=== PATIENT | female | born 1985 | race Caucasian/White ===

== ENCOUNTER → 2023-09-10 | Outpatient (CLI) | payer MEDICAID, SELFPAY ==
[2023-09-10 11:45] LABS: Hematocrit 40.6 % (37-47); Hemoglobin 13.3 g/dL (12.0-15.0); Mean Corp Hgb Conc 32.8 g/dL (32-36); Mean Corpuscular Hgb 29.9 pg (27.0-32.0); Mean Corpuscular Volume 91.2 fL (81-99); Mean Platelet Vol. 9.9 fl (6.2-12.0); Platelet Count 209 K/mm3 (150-450); RBC Distribution Width SD 43.6 fl (35.1-43.9); Red Blood Count 4.45 M/mm3 (4.2-5.4); White Blood Count 7.7 K/mm3 (4.4-11.0)
[2023-09-10 12:01] LABS: Hemoglobin A1c 4.8 % (3.8-5.6)
[2023-09-10 12:03] LABS: AST(SGOT) 11 U/L (15-37); Alanine Aminotransfer ALT/SGPT 19 U/L (13-56); Albumin, Serum 3.4 g/dL (3.2-5.0); Alkaline Phosphatase 93 U/L (45-117); Anion Gap 6 (5-15); BUN 10 mg/dL (7-18); BUN/Creat Ratio 12.1 RATIO (10-20); Calcium,Total 9.5 mg/dL (8.5-10.1); Chloride 107 mmol/L (98-107); Creatinine, Serum 0.82 mg/dL (0.55-1.02); EST Glomerular Filtration Rate 82 mL/min (>60); Est Glom Filt Rate - Afr Amer 99 mL/min (>60); Ferritin 17 ng/mL (8-252); Globulin 3.3 g/dL (2.2-4.2); Glucose 96 mg/dL (74-106); Iron 51 ug/dL (50-170); Iron Binding Capacity,Total 313 ug/dL (250-450); PERCENT IRON SATURATION 16.3 % (15.0-55.0); Potassium 3.7 mmol/L (3.5-5.1); Protein, Total 6.7 g/dL (6.4-8.2); Sodium Level 138 mmol/L (136-145)
[2023-09-10 12:19] LABS: Vitamin B12 345 pg/mL (211-911); Vitamin D,25 Hydroxy 76.9 ng/mL
== END | disposition home or self-care (01) ==
PROVIDERS: Referring Provider Counselor Mental Health; Visit Provider Counselor Mental Health
DX: Z79.899 Other long term (current) drug therapy (principal); E55.9 Vitamin D deficiency, unspecified
CPT/HCPCS: 36415; 80053; 80178; 82306; 82607; 82728; 83036; 83540; 83550; 84443; 85027

== ENCOUNTER 2023-10-30 08:04 | Emergency (ER) | payer MEDICAID, SELFPAY ==
[2023-10-30 08:05] VITALS: BP 120/86; PULSE 102; RESP 16; TEMP 36.6; O2SAT 97; BMI 33.3
--- NOTE | 2023-10-30 09:05 | EDS_ITS ---
HPI History of Present Illness Chief Complaint: Dental Informant: patient Associated Symptoms Assocated Symptom - Dental: jaw swelling; Negative for fever Narrative Narrative: Patient is a 38-year-old female with history of vaping presenting with right lower dental pain and jaw swelling. Patient dates has been having pain for the past 3 to 4 days but this morning woke around 4 AM and notes are dry with swelling. Is worried she has a dental abscess. Taking ibuprofen with no relief. Denies any fever. Denies any speech changes or difficulty swallowing. Is requesting referral for dentist that she does not have 1. PFSH PFS Medical History [place] [facility] Home Medications ?Medication ?Instructions ?Recorded ?Last Taken ?Type hydrocodone-acetaminophen 5-325mg 1 tab PO Q8H PRN Pain 3 days #10 10/30/23 Unknown Rx 5mg-325mg TABLETS penicillin V potassium 500 mg 500 mg PO 4X/DAY #40 tabs 10/30/23 Unknown Rx tablet Allergy/AdvReac Type Severity Reaction Status Date / Time olanzapine (From Zyprexa) Allergy Intermediate Rash Verified 10/30/23 08:18 ziprasidone (From Geodon) AdvReac Intermediate unsteady Verified 10/30/23 08:18 gait Surgical History H/O: hysterectomy Social History Smoking Status: Current every day smoker tobacco type: cigarettes ROS ROS ED Constitutional Constitutional ED: Denies chills or fever(s) Eyes Eyes: Denies blurry vision ENT ENT ED: Reports other Details: right lower dental pain and jaw swelling Respiratory/Chest Respiratory/Chest: Denies dyspnea Gastrointestinal Gastrointestinal: Denies vomiting Integumentary Denies rash EXAM Physical Exam Const Vital Signs: 10/30/23 08:05 Temperature 97.9 F Temperature Source Temporal Pulse Rate 102 H Respiratory Rate 16 Blood Pressure 120/86 H Blood Pressure Mean 97 Pulse Ox 97 Oxygen Delivery Method Room Air Positive well nourished and well developed General Appearance ED: well developed and NAD HEENT Reports TM's clear HEENT Narrative: Poor dentition throughout. Multiple missing and carried teeth. Pain is seems to be coming from the right lower premolar which is partially eroded away. With palpation other spontaneous purulent drainage from the lateral aspect of the tooth. Associated pain. Sublingual mucosa is soft. There is some soft tissue swelling noted of the right mandibular area. Handling secretions well. Tympanic Membrane ED: Yes TM's clear Teeth and Gingiva: poor dentition and teeth discoloration Throat: posterior oropharynx normal Eyes PERRL and EOMs intact bilaterally Neck supple Chest Wall inspection of chest normal Cardio regular rate and regular rhythm Neuro oriented x3 Sensorium / Orientation: alert Motor Exam: Negative for general weakness Psych mental status grossly normal Skin no rashes or lesions noted MDM MDM MDM Narrative Medical decision making narrative: Patient evaluated for worsening right lower dental pain and jaw swelling. Exam highly consistent with spontaneously draining dental abscess. She is uncomfortable but nontoxic-appearing. Started on antibiotic (request penicillin because amoxicillin gives her diarrhea) and also was given a short course of Almira for pain control as she is not having adequate pain control with ibuprofen. Is given dental referral sheet. At this time she does not have findings concerning for with Kiran angina, airway compromise or deep space abscess requiring further imaging/ENT consult. Is encouraged to stop vaping. Discharged home in stable condition. Given return precautions. Discharge Plan Triage Chief Complaint: Dental ED Provider: Jing Shaffer Dx/Rx/DC Orders Clinical Impression: Dentalgia, Abscess, dental Instructions: ED Tooth Abscess Prescriptions: New penicillin V potassium 500 mg tablet 500 mg PO 4X/DAY Qty: 40 0RF hydrocodone-acetaminophen 5-325 mg tablet 1 tab PO Q8H PRN (Reason: Pain) 3 Days Qty: 10 0RF Primary Care Provider: Care Physician,No Primary Referrals: Care Physician,No Primary [Primary Care Provider] - Activity Restrictions/Additional Instructions: You may also take up to 600 mg of [id number] ibuprofen (3 tablets) every 6 hours for pain. Please stop vaping. Print Language: Spanish Disposition Disposition: Home, Self Care
[2023-10-30] MEDS: Penicillin Vk 250 MG Tablet 500 MG PO (09:13)
[2023-10-30] MEDS: HYDROcodone Bitartrate/Apap 5/325 Tablet PO (09:13)
== END 2023-10-30 09:37 | disposition home or self-care (01) ==
PROVIDERS: Emergency Provider Emergency Medicine; Visit Provider Emergency Medicine
DX: K04.7 Periapical abscess without sinus (principal); K02.9 Dental caries, unspecified; F17.210 Nicotine dependence, cigarettes, uncomplicated
CPT/HCPCS: 99284

== ENCOUNTER 2024-08-05 14:23 | Emergency (ER) | payer MEDICAID, SELFPAY ==
[2024-08-05 14:24] VITALS: BP 88/68; PULSE 126; RESP 18; TEMP 37; O2SAT 98; BMI 29.2
--- NOTE | 2024-08-05 16:03 | RAD_ITS ---
PROCEDURE: CHEST PA AND LATERAL 08/05/2024 REASON FOR EXAM: CHEST PAIN TECHNIQUE: Frontal and lateral views of the chest. COMPARISON: None FINDINGS: Cardiomediastinal silhouette is within normal limits. Lungs are clear. No sizable pneumothorax. RAD/Chest PA and Lateral IMPRESSION: No acute airspace abnormality. Reading Location: [facility]
--- NOTE | 2024-08-05 16:10 | EX.ED.DYSGE1 ---
HPI History of Present Illness Chief Complaint: Syncope Informant: patient Onset/Context/Timing Onset: - (Syncopal episodes x 2 on Saturday. No prior history.) Context: Sudden Onset Timing: Intermittent Current Severity: Mild Maximum Severity: Mild Narrative Narrative: 39-year-old female history of bipolar. Prior hysterectomy and . States on Saturday she had 2 syncopal episodes. Had loss conscious. Fell striking her face and right shoulder. Denies any headache or neck pain. Has normal range of motion of the shoulder. States she has had nausea but no vomiting or diarrhea. No melena. No vaginal bleeding. No fever or dysuria. No severe headache, chest pain or shortness of breath. No abdominal pain. She has never had syncopal episodes before. She has no cardiac history. Prior similar symptoms: No Recent Illness/Hospitalization: No PFSH PFSH Medical History [place] [facility] Home Medications ?Medication ?Instructions ?Recorded ?Last Taken ?Type hydrocodone-acetaminophen 5-325mg 1 tab PO Q8H PRN Pain 3 days #10 10/30/23 Unknown Rx 5mg-325mg TABLETS penicillin V potassium 500 mg 500 mg PO 4X/DAY #40 tabs 10/30/23 Unknown Rx tablet Allergy/AdvReac Type Severity Reaction Status Date / Time olanzapine (From Zyprexa) Allergy Intermediate Rash Verified 08/05/24 14:25 ziprasidone (From Geodon) AdvReac Intermediate unsteady Verified 08/05/24 14:25 gait Surgical History H/O: hysterectomy Social History Smoking Status: Current every day smoker tobacco type: cigarettes ROS ROS ED ROS Narrative Nausea but no other complaints other than the syncopal episodes. Constitutional Constitutional ED: Denies chills or fever(s) Eyes Eyes: Denies blurry vision ENT ENT ED: Denies ear pain Cardiovascular Cardiovascular: Denies chest pain Respiratory/Chest Respiratory/Chest: Denies cough, dyspnea or dyspnea on exertion Gastrointestinal Gastrointestinal: Reports nausea; Denies abdominal pain, constipation, diarrhea, melena or vomiting Genitourinary Genitourinary ED: Denies dysuria or hematuria Musculoskeletal Musculoskeletal: Denies arthralgias or back pain Integumentary Denies abscess Neurologic Neurologic: Denies headache(s) Psychiatric Psychiatric: Denies anxiety Endocrine Endocrinology: Denies cold intolerance Hematologic/Lymphatic Hematologic/Lymphatic: Reports none Allergic/Immunologic Allergic/Immunologic ED: Denies mouth swelling, tongue swelling or urticaria EXAM Physical Exam Narrative Exam Narrative: 3-year-old female sitting upright in bed. No acute distress her initial blood pressure was 88/68. Her pulse is 126. Afebrile. Pulse ox 90% on room air. Currently has no complaints other than mild nausea. H EENT exam pupils round reactive light. No significant trauma to her face or scalp. Nontender no hematomas. Moist mucous membranes. Neck nontender no lymphadenopathy. Back nontender. Lungs clear equal symmetrical. Heart regular rhythm rate about 90 no murmur. Chest wall and ribs nontender. Abdomen soft nontender. No peritoneal signs. Moving all 4 extremities. 5 out of 5 clothing room supervisor strength. Normal range of motion of both upper extremities. She is a very minor bruise on her right shoulder is normal range of motion no deformity. 5 out of 5 clothing room supervisor strength bilaterally. Neurovascular intact. Both lower extremities are nontender no deformity. Normal range of motion. Normal dorsi and plantarflexion. Calves are nontender without edema or cords. Neurologically she is awake alert no focal motor deficits. Const Vital Signs: 08/05/24 14:24 08/05/24 15:48 08/05/24 16:03 Temperature 98.6 F Temperature Source Oral Pulse Rate 126 H Respiratory Rate 18 Respiratory Effort Normal Non-Labored Respiratory Pattern Normal Blood Pressure 88/68 L Blood Pressure Mean 74 Pulse Ox 98 Oxygen Delivery Method Room Air Room Air 08/05/24 17:00 08/05/24 18:00 08/05/24 19:00 Temperature Temperature Source Pulse Rate 104 H 99 72 Respiratory Rate 16 16 18 Respiratory Effort Respiratory Pattern Blood Pressure 98/71 97/65 106/71 Blood Pressure Mean 80 75 82 Pulse Ox 96 98 99 Oxygen Delivery Method Room Air Room Air HEENT Reports moist mucous membranes Negative for trauma or tenderness Eyes PERRL and EOMs intact bilaterally General Eye ED: Negative for pale conjunctiva or scleral icterus Neck no lymphadenopathy, supple and no JVD General: Negative for tenderness Lymph Lymphatic: Negative for other Chest Wall inspection of chest normal Resp normal respiratory effort and clear to auscultation bilaterally Cardio regular rate, regular rhythm, S1 normal heart sound, S2 normal heart sound and no murmurs Rate: Negative for bradycardia or tachycardic Rhythm: Negative for abnormal rhythm GI normal to inspection, nondistended, normoactive bowel sounds, non-tender, non-distended and no masses Inspection: Negative for abdominal distention Auscultation: normoactive bowel sounds Palpation: soft; Negative for tender, guarding or rebound tenderness present Back/Spine no CVA tenderness General Back: Negative for CVA tenderness Cervical Spine: Negative for cervical spine tenderness Thoracic Spine / Upper Back: Negative for thoracic spinal tenderness or paraspinal muscle tenderness Lumbar Spine / Lower Back: Negative for lumbar spinal tenderness Extremity normal to inspection Extremity Narrative: Minor bruise right shoulder. Nontender. No deformity. Full range of motion. Normal clothing room supervisor strength bilaterally. Normal range of motion nontender lower extremities. Calves are nontender without edema or cords. General Extremety ED: Negative for edema or tenderness General Extremity: Negative for edema Neuro oriented x3 and CN's II-XII intact bilaterally Sensorium / Orientation: alert; Negative for orientation impaired, lethargic or stuporous Motor Exam: strength 5/5 throughout; Negative for general weakness or strength abnormal Psych mental status grossly normal Attitude: No agitated Mood & Affect: Negative for depressed, anxious or tearful Skin no rashes or lesions noted, no wounds and skin turgor normal General Skin Exam: elasticity normal Lesions: No lesion noted Rashes: No rashes noted MDM MDM MDM Narrative Medical decision making narrative: 39-year-old female presents with syncopal episodes x 2 on Saturday. Only complaint currently is nausea. Exam benign. Workup for syncope being done. Differential would include dysrhythmia, anemia, dehydration versus other etiologies. She has a benign exam. She be treated with IV fluids because her initial blood pressure was 88/60. Currently her pulse is under 100. Repeat exam at 7:52 PM patient doing well. No complaints. Abdomen benign. Current blood pressure is 102/60. Show he stood up and ambulated. We discussed her normal test results. We discussed admission versus being discharged home. She preferred to be discharged home. Syncope uncertain etiology. Either follow-up with primary care physician or orthopaedic surgeon here for possible outpatient cardiac monitoring. History & Record Review Discussion w/independent historian: Patient Additional record(s) reviewed:: Prior inpatient record, Prior outpatient record, Prior ED visit and Prior labs Lab Data Attestation: I reviewed the patient's lab results. Lab results narrative: CBC shows normal white count 9.3. H&H 14 and 41. Platelets 226. Electrolytes show sodium 140. Gap 10. Normal BUN of 8 creatinine 0.8. Glucose 86. Troponin less than 6. UA negative. Labs: Laboratory Results - last 24 hr 08/05/24 08/05/24 16:28 18:06 WBC 9.3 RBC 4.44 Hgb 14.1 Hct 41.8 MCV 94.1 MCH 31.8 MCHC 33.7 RDW Std Deviation 45.5 H RDW Coeff of Lorraine 13.2 Plt Count 226 MPV 10.7 Immature Gran % (Auto) 0.300 Neut % (Auto) 60.5 Lymph % (Auto) 32.8 [place] % (Auto) 5.0 Eos % (Auto) 1.3 Baso % (Auto) 0.1 Absolute Neuts (auto) 5.7 Absolute Lymphs (auto) 3.06 Nucleated RBC % 0 Sodium 140 Potassium 3.6 Chloride 109 H Carbon Dioxide 21.1 Anion Gap 10 BUN 8 Creatinine 0.80 Estim Creat Clear Calc 97.61 Est GFR (MDRD) Non-Af 96 BUN/Creatinine Ratio 10.1 Glucose 86 Calcium 9.1 Troponin T High Sens < 6 Urine Color Yellow Urine Clarity Clear Urine pH 6.0 Ur Specific [place] 1.015 Urine Protein TNP Urine Glucose (UA) Normal Urine Ketones Negative Urine Occult Blood Negative Urine Nitrite Negative Urine Bilirubin Negative Urine Urobilinogen Normal Ur Leukocyte Esterase 100 H Urine RBC 0-5 SEEN Urine WBC 0-5 SEEN Ur Squamous Epith Cells 0-5 SEEN Urine Bacteria 0 SEEN Urine Mucus 0 SEEN U Random Total Protein 10.7 Radiography Chest X-Ray - ED: 2 View, Read by ED Physician, Read by Radiologist, Normal, Heart, Lungs, Mediastinum, Bony Structures, No Acute Disease and Chronic Changes Diagnostic Testing: Clinical Impression(s) from Imaging Studies Chest X-Ray 08/05/24 16:03 IMPRESSION: No acute airspace abnormality. Reading Location: [facility] Chest x-ray, 2 views, AP lateral, interpreted by myself shows no acute abnormality. Normal cardiac silhouette. Normal lung mercado. Rhythm Strip Rhythm Strip: Sinus Rhythm Rate: 89 Ectopy: None EKG Initial EKG: Attestation: I personally reviewed and interpreted this EKG as follows: Interpretation: Sinus Rhythm and No Acute Injury Pattern Comments: Normal sinus rhythm rate 89 no acute signs of RI or ischemia. No dysrhythmia. Incomplete right bundle branch block. Discharge Plan Triage Chief Complaint: Syncope ED Provider: Pravin Hernandez Dx/Rx/DC Orders Clinical Impression: Syncope Instructions: What Is Syncope Prescriptions: No Action penicillin V potassium 500 mg tablet 500 mg PO 4X/DAY Qty: 40 0RF hydrocodone-acetaminophen 5-325 mg tablet 1 tab PO Q8H PRN (Reason: Pain) 3 Days Qty: 10 0RF Primary Care Provider: Kylah Marcelino NP Referrals: Juan Gómez MD [Med Staff - Active Staff] - As soon as possible Kylah Marcelino NP, CAGE MANAGER-C [Primary Care Provider] - As soon as possible Activity Restrictions/Additional Instructions: All your tests look good today. We do not have a specific cause of why you passed out. Call and follow-up with our orthopaedic surgeon. They can consider doing outpatient cardiac monitoring. Call their office. Tell them you were seen in the emergency department you passed out we do not have a specific cause and we thought that they could discuss with you outpatient cardiac monitoring if necessary. I would not drive at this time until you are feeling better. Print Language: Mohawk Disposition Disposition: Home, Self Care
[2024-08-05] MEDS: 0.9% Normal Saline (1000mL) 1,000 ML 999 ML IV (16:32)
[2024-08-05 16:43] LABS: Absolute Lymphocyte Count 3.06 X10^3/uL (0.83-4.51); Absolute Neutrophil Count 5.7 X10^3/uL (2.0-7.7); Basophil# 0.01 X10^3/uL; Basophil% 0.1 % (0-1); Eosinophil# 0.12 X10^3/uL; Eosinophils% 1.3 % (0-5); Hematocrit 41.8 % (37-47); Hemoglobin 14.1 g/dL (12.0-15.0); Lymphocyte # 3.06 X10^3/ul (0.83-4.51); Lymphocyte % 32.8 % (19-41); Mean Corp Hgb Conc 33.7 g/dL (32-36); Mean Corpuscular Hgb 31.8 pg (27.0-32.0); Mean Corpuscular Volume 94.1 fL (81-99); Mean Platelet Vol. 10.7 fl (6.2-12.0); Monocyte# 0.47 X10^3/uL; NRBC Flagged by Analyzer 0 % (0-5); Neutrophil # 5.65 X10^3/uL (2.7-7.7); Neutrophil % 60.5 % (47-70); Platelet Count 226 K/mm3 (150-450); RBC Distribution Width CV 13.2 % (11.6-14.6); RBC Distribution Width SD 45.5 fl (35.1-43.9); Red Blood Count 4.44 M/mm3 (4.2-5.4); White Blood Count 9.3 K/mm3 (4.4-11.0)
[2024-08-05 17:00] VITALS: BP 98/71; PULSE 104; RESP 16; O2SAT 96
[2024-08-05 17:25] LABS: Anion Gap 10 (5-15); BUN 8 mg/dL (4-19); BUN/Creat Ratio 10.1 RATIO (10-20); Calcium,Total 9.1 mg/dL (7.6-11.0); Carbon Dioxide 21.1 mmol/L (21.0-32.0); Chloride 109 mmol/L (98-108); EST Glomerular Filtration Rate 96 (>60); Estimated Creatinine Clearance 97.61 ml/min (50-250); Glucose 86 mg/dL (70-99); Potassium 3.6 mmol/L (3.3-5.1); Sodium Level 140 mmol/L (133-145); Troponin T High Sensitivity < 6 ng/L (<=14)
[2024-08-05 18:00] VITALS: BP 97/65; PULSE 99; RESP 16; O2SAT 98
[2024-08-05 18:10] LABS: Bacteria 0 SEEN /hpf (None Seen); Mucous, Urine 0 SEEN /hpf (<or=2+)
[2024-08-05 18:22] LABS: Color, Urine Yellow (Yellow); Glucose, Dipstick Normal (Normal); Ketone-Dipstick Negative (Negative); Leukocyte Esterase-Dipstick 100 /ul (Negative); Nitrite-Dipstick Negative (Negative); Occult Blood-Urine Negative /ul (Negative); Specific Gravity, Urine 1.015 (1.002-1.030); Urine Bilirubin Dipstick Negative (Negative); Urine Clarity Clear (Clear); Urine Urobilinogen Normal (Normal)
[2024-08-05 19:00] VITALS: BP 106/71; PULSE 72; RESP 18; O2SAT 99
[2024-08-05 19:20] LABS: Red Blood Cells-Urine 0-5 SEEN /hpf (0-5); Squamous Epithelial Cells - UA 0-5 SEEN /hpf (5-10); White Blood Cells 0-5 SEEN /hpf (0-5)
[2024-08-05 19:47] LABS: Protein, Urine (Random) 10.7 mg/dL (0.0-12.0)
[2024-08-05 20:00] VITALS: BP 102/71; PULSE 78; RESP 16; TEMP 36.3; O2SAT 99
== END 2024-08-05 20:13 | disposition home or self-care (01) ==
PROVIDERS: Emergency Provider Emergency Medicine; PCP Nurse Practitioner Adult Health; Visit Provider Emergency Medicine
DX: R55 Syncope and collapse (principal); S40.011A Contusion of right shoulder, initial encounter; W18.30XA Fall on same level, unspecified, initial encounter; R11.0 Nausea; F17.210 Nicotine dependence, cigarettes, uncomplicated
CPT/HCPCS: 71046; 80048; 81001; 84156; 84484; 85025; 93005; 96360; 96361; 99284; A4216

== ENCOUNTER 2025-01-24 19:49 | Emergency (ER) | payer MEDICAID, SELFPAY ==
[2025-01-24 19:52] VITALS: BP 102/75; PULSE 89; RESP 12; TEMP 36.8; O2SAT 98
--- NOTE | 2025-01-24 20:17 | EDS_ITS ---
HPI History of Present Illness Chief Complaint: Chest Pain Informant: patient Onset/Context/Timing Onset: Today Activity at onset: sudden Timing: Continuous Quality: Positive for Stabbing and - (Cramping) Location: Substernal, Right Parasternal and Right Chest Worsened By: - (Yawning) Relieved By: Nothing Associated Symptoms: Positive for Nausea, Vomiting, Diaphoresis, Dyspnea, Cough and Lightheadedness; Negative for Fever, Acid Reflux or Palpitations Narrative Narrative: Patient presents with chest pain that began today. Patient states began rather suddenly. Patient describes it as stabbing and cramping. Patient states it is over the substernal area and right chest. Patient states it is worse whenever she yawns. Patient states nothing makes it better. Patient admits to some nausea and vomiting. Patient admits to some shortness of breath and cough. Patient admits to some diaphoresis and lightheadedness. Patient denies any fevers or chills. Patient denies any palpitations. CVD Risk Factors: Positive for Smoking; Negative for Hypertension, Diabetes, Hypercholesterolemia or Family History 1' </=55 PE Risk Factors: Positive for Cancer; Negative for Recent Travel/Surgery, Recent Immobilization, Prior DVT or PE or OCP + Smoking + >/=35 PFSH PFSH Medical History Nicotine use disorder Fibromyalgia Marijuana use Adjustment disorder Syncope Genital herpes Bipolar disorder [place] Home Medications ?Medication ?Instructions ?Recorded ?Last Taken ?Type cariprazine 1.5 mg capsule 1.5 mg PO DAILY 01/24/25 Un known History (Vraylar) cariprazine 3 mg capsule (Vraylar) 3 mg PO DAILY 01/24 Unknown History clonazepam 1 mg tablet 1 mg PO TID PRN PRN anxiety attack 01/24/25 Unknown History doxycycline monohydrate 50 mg 50 mg PO DAILY 01/24/25 Unknown History capsule gabapentin 300 mg capsule 300 mg PO 4X/DAY 01/24/25 Un known History gabapentin 600 mg tablet 600 mg PO BID 01/24/25 Unkno wn History lamotrigine 200 mg tablet 200 mg PO QHS 01/24/25 Unkno wn History lamotrigine 25 mg tablet 25 mg PO QHS 01/24/25 Unknow n History spironolactone 50 mg tablet 50 mg PO DAILY 01/24/25 Un known History topiramate 100 mg tablet 100 mg PO QHS 01/24/25 Unkno wn History valacyclovir 500 mg tablet 500 mg PO DAILY 01/24/25 Un known History zolpidem 10 mg tablet 10 mg PO QHS 01/24/25 Unknow n History Allergy/AdvReac Type Severity Reaction Status Date / Time olanzapine (From Zyprexa) Allergy Intermediate Rash Verified 01/24/25 19:56 ziprasidone (From Geodon) AdvReac Intermediate unsteady Verified 01/24/25 19:56 gait Surgical History H/O section History of vulvectomy H/O: hysterectomy Social History Smoking Status: Current every day smoker tobacco type: cigarettes ROS ROS ED Constitutional Constitutional ED: Denies chills or fever(s) Eyes Eyes: Denies blurry vision or change in vision ENT ENT ED: Denies rhinorrhea or sore throat Cardiovascular Cardiovascular: Reports chest pain; Denies palpitations Respiratory/Chest Respiratory/Chest: Reports dyspnea; Denies cough Gastrointestinal Gastrointestinal: Reports nausea and vomiting Genitourinary Genitourinary ED: Denies dysuria or hematuria Musculoskeletal Musculoskeletal: Denies back pain or neck pain Integumentary Denies abscess or rash Neurologic Neurologic: Denies headache(s) or weakness Allergic/Immunologic Allergic/Immunologic ED: Denies mouth swelling or urticaria EXAM Physical Exam Const Vital Signs: 01/24/25 19:52 01/24/25 20:23 01/24/25 20:58 Temperature 98.2 F Temperature Source Oral Pulse Rate 89 85 Respiratory Rate 12 18 Respiratory Effort Respiratory Pattern Blood Pressure 102/75 102/73 Blood Pressure Mean 84 82 Pulse Ox 98 99 98 Oxygen Delivery Method Room Air Room Air Room Air 01/24/25 22:00 01/24/25 22:00 01/24/25 23:00 Temperature Temperature Source Pulse Rate 84 79 Respiratory Rate 16 18 Respiratory Effort Normal Non-Labored Respiratory Pattern Normal Blood Pressure 102/83 H 103/80 Blood Pressure Mean 89 87 Pulse Ox 98 96 Oxygen Delivery Method Room Air Room Air 01/24/25 23:22 Temperature 98 F Temperature Source Pulse Rate 81 Respiratory Rate 16 Respiratory Effort Respiratory Pattern Blood Pressure 103/80 Blood Pressure Mean 87 Pulse Ox 97 Oxygen Delivery Method Positive well nourished and well developed General Appearance ED: well developed and NAD HEENT Reports moist mucous membranes Neck supple and no JVD Chest Wall palpation of chest normal Resp normal respiratory effort and clear to auscultation bilaterally Cardio regular rate and regular rhythm GI soft to palpation, non-tender and non-distended Extremity normal to inspection Neuro oriented x3, CN's II-XII intact bilaterally and no sensory deficits noted Sensorium / Orientation: awake and alert Motor Exam: strength 5/5 throughout Psych mental status grossly normal Heart Score History: Slightly/Non-Suspicious ECG: Nonspecific Repolarization Age: </= 45 years Risk Factors: 1 or 2 Risk Factors Troponin: </= Normal Limit Score: 2 MDM MDM MDM Narrative Medical decision making narrative: Differential diagnosis includes cardiac dysrhythmia, cardiac ischemia, pneumonia, bronchitis, gastroesophageal reflux disease, viral illness, and anxiety. EKG will be obtained to assess for cardiac dysrhythmia and cardiac ischemia. Chest x-ray will be obtained to assess for pneumonia or bronchitis. CBC will be obtained to assess for leukocytosis and anemia. Basic metabolic profile will be obtained to assess for electrolyte abnormality and renal function. High-sensitivity troponin will be obtained to assess for cardiac ischemia. 2-hour repeat high-sensitivity troponin will be obtained to assess for ongoing cardiac ischemia. Lab Data Attestation: I reviewed the patient's lab results. Lab results narrative: CBC was reviewed and was essentially within normal limits. Basic metabolic pr ofile was reviewed and was within normal limits. Initial high-sensitivity troponin was reviewed and was less than 6. 2-hour repeat high-sensitivity troponin was reviewed and was less than 6. Labs: Laboratory Results - last 24 hr 01/24/25 01/24/25 19:20 22:18 WBC 9.5 RBC 5.06 Hgb 16.3 H Hct 47.3 H MCV 93.5 MCH 32.2 H MCHC 34.5 RDW Std Deviation 43.8 RDW Coeff of [place]raine 12.8 Plt Count 314 MPV 10.5 Immature Gran % (Auto) 0.200 Neut % (Auto) 63.2 Lymph % (Auto) 28.9 [place] % (Auto) 6.8 Eos % (Auto) 0.7 Baso % (Auto) 0.2 Absolute Neuts (auto) 6.0 Absolute Lymphs (auto) 2.73 Nucleated RBC % 0 Sodium 137 Potassium 3.6 Chloride 104 Carbon Dioxide 17.2 L Anion Gap 16 H BUN 10 Creatinine 0.88 Est GFR (MDRD) Non-Af 85 BUN/Creatinine Ratio 11.6 Glucose 100 H Calcium 9.6 Troponin T High Sens < 6 Troponin T Hi Sens 2 Hr < 6 Radiography Diagnostic Testing: Clinical Impression(s) from Imaging Studies Chest X-Ray 01/24/25 20:23 IMPRESSION: No acute cardiopulmonary process. Reading Location: [facility] and lateral chest x-ray was obtained. There are 2 views. On my independent interpretation, lung mercado are clear. There is normal cardiac silhouette. Bony thorax is normal. There is no acute process noted. Radiologist also interpreted the x-ray and agrees. EKG Initial EKG: Attestation: I personally reviewed and interpreted this EKG as follows: Interpretation: Sinus Rhythm (91) and Non-Specific ST Changes Comments: EKG was obtained. On my independent interpretation, it shows a normal sinus rhythm with a rate of 91. SC interval was normal at 1 or 50 ms. QRS interval was normal at 80 ms. QTc interval was normal at 428 ms. There is borderline right axis deviation at 113. There are no acute ST or T wave changes noted. Prior EKG tracings: available for review Prior: Unchanged (08/05/2024) Treatment and Re-Evaluation :: Patient was given aspirin and Zofran here. Patient was advised of her findings. Patient has a HEART score of 2. Patient was advised that this is low risk for acute cardiac event. Patient was instructed to follow-up with her primary care physician this week as scheduled. Patient understood and was agreeable with the plan. All questions were answered. Discharge Plan Triage Chief Complaint: Chest Pain ED Provider: Quoc Seymour Dx/Rx/DC Orders Clinical Impression: Chest pain, Nicotine use disorder, Fibromyalgia Instructions: ED Chest Pain, Uncertain Cause Prescriptions: No Action gabapentin 600 mg tablet 600 mg PO BID lamotrigine 200 mg tablet 200 mg PO QHS clonazepam 1 mg tablet 1 mg PO TID PRN PRN (Reason: anxiety attack) valacyclovir 500 mg tablet 500 mg PO DAILY lamotrigine 25 mg tablet 25 mg PO QHS doxycycline monohydrate 50 mg capsule 50 mg PO DAILY gabapentin 300 mg capsule 300 mg PO 4X/DAY zolpidem 10 mg tablet 10 mg PO QHS topiramate 100 mg tablet 100 mg PO QHS spironolactone 50 mg tablet 50 mg PO DAILY Vraylar 1.5 mg capsule 1.5 mg PO DAILY Vraylar 3 mg capsule 3 mg PO DAILY Primary Care Provider: Kylah Marcelino NP Referrals: Kylah Marcelino NP, PRODUCE DEPARTMENT SUPERVISOR-C [Primary Care Provider, Medical] - [facility] appointment Print Language: Japanese Disposition Disposition: Home, Self Care Discharge Date/Time: 01/24/25 23:22
[2025-01-24 20:23] VITALS: O2SAT 99
--- NOTE | 2025-01-24 20:23 | RAD_ITS ---
EXAM: XR Chest, 2 Views CLINICAL INDICATION: CHEST PAIN TECHNIQUE: Frontal and lateral views of the chest. COMPARISON: XR Chest dated 08/05/2024 FINDINGS: LUNGS AND PLEURAL SPACES: Unremarkable. No consolidation. No pneumothorax. HEART: Unremarkable. No cardiomegaly. MEDIASTINUM: Unremarkable. Normal mediastinal contour. BONES/JOINTS: Unremarkable. No acute fracture. RAD/Chest PA and Lateral IMPRESSION: No acute cardiopulmonary process. Reading Location: [id number]
--- NOTE | 2025-01-24 20:23 | EKG12_ITS ---
Test Reason : Blood Pressure : */* mmHG Vent. Rate : 91 BPM Atrial Rate : 91 BPM P-R Int : 150 ms QRS Dur : 80 ms QT Int : 348 ms P-R-T Axes : 79 113 58 degrees QTcB Int : 428 ms Normal sinus rhythm Right axis deviation Possible Right ventricular hypertrophy Abnormal ECG Confirmed by ABHINAV LINDSEY, SHIMA ([id number]), film and video editor DONI ORELLANA ([id number]) on 01/26/2025 7:49:09 AM Referred By: Confirmed By: SHIMA LA MD
[2025-01-24 20:39] LABS: Hematocrit 47.3 % (37-47); Hemoglobin 16.3 g/dL (12.0-15.0); Immature Granulocytes Count 0.020 X10^3/uL (0.0-0.0); Mean Corp Hgb Conc 34.5 g/dL (32-36); Mean Corpuscular Volume 93.5 fL (81-99); Mean Platelet Vol. 10.5 fl (6.2-12.0); NRBC Flagged by Analyzer 0 % (0-5); Platelet Count 314 K/mm3 (150-450); RBC Distribution Width CV 12.8 % (11.6-14.6); RBC Distribution Width SD 43.8 fl (35.1-43.9); Red Blood Count 5.06 M/mm3 (4.2-5.4); White Blood Count 9.5 K/mm3 (4.4-11.0)
[2025-01-24 20:58] VITALS: BP 102/73; PULSE 85; RESP 18; O2SAT 98
[2025-01-24 21:03] LABS: Anion Gap 16 (5-15); BUN 10 mg/dL (4-19); BUN/Creat Ratio 11.6 RATIO (10-20); Calcium,Total 9.6 mg/dL (7.6-11.0); Carbon Dioxide 17.2 mmol/L (21.0-32.0); Chloride 104 mmol/L (98-108); Glucose 100 mg/dL (70-99); Potassium 3.6 mmol/L (3.3-5.1); Troponin T High Sensitivity < 6 ng/L (<=14)
[2025-01-24 22:00] VITALS: BP 102/83; PULSE 84; RESP 16; O2SAT 98
[2025-01-24 23:00] VITALS: BP 103/80; PULSE 79; RESP 18; O2SAT 96
[2025-01-24 23:11] LABS: Troponin T High Sens 2 HR < 6 ng/L (<=14)
[2025-01-24 23:22] VITALS: BP 103/80; PULSE 81; RESP 16; TEMP 36.6; O2SAT 97
== END 2025-01-24 23:22 | disposition home or self-care (01) ==
PROVIDERS: Emergency Provider Emergency Medicine; PCP Nurse Practitioner Adult Health; Visit Provider Emergency Medicine
DX: R07.9 Chest pain, unspecified (principal); F31.9 Bipolar disorder, unspecified; R11.2 Nausea with vomiting, unspecified; M79.7 Fibromyalgia; Z79.899 Other long term (current) drug therapy; Z90.710 Acquired absence of both cervix and uterus; F17.210 Nicotine dependence, cigarettes, uncomplicated
CPT/HCPCS: 71046; 80048; 84484; 85025; 93005; 96374; 99285; A4216; J2405

== ENCOUNTER 2025-04-05 10:25 | Emergency (ER) | payer MEDICAID, SELFPAY ==
[2025-04-05 10:26] VITALS: BP 102/73; PULSE 122; RESP 16; TEMP 36.4; O2SAT 98; BMI 26.8
--- NOTE | 2025-04-05 11:45 | CT_ITS ---
PROCEDURE: ABDOMEN/PELVIS W IV CONT ONLY 04/05/2025 REASON FOR EXAM: LOWER ABD PAIN, RLQ PAIN TECHNIQUE: Procedure Code: [id number] Modality: CT Procedure: ABDOMEN/PELVIS W IV CONT ONLY Coronal and Sagittal reconstruction series were provided. CONTRAST: Isovue-300 VOLUME: 98 mL One or more dose reduction techniques were used (e.g., Automated exposure control, adjustment of the mA and/or kV according to patient size, use of iterative reconstruction technique. RADIATION DOSE SUMMARY: CTDlvol: 12 mGy DLP: 519 mGycm COMPARISON: None FINDINGS: Lung bases: Clear Liver: Normal Gallbladder: Several calculi are seen within the gallbladder lumen. No wall thickening or pericholecystic fluid. No biliary ductal dilation. Spleen: Normal. Small splenule. Pancreas: Normal. Adrenals: Normal Kidneys: Right kidney is normal. Left kidney shows a delayed nephrogram, perinephric stranding and some congestion associated with mild hydronephrosis and a stone at the ureteropelvic junction. The stone measures 8.3 x 4.6 x 4.6 mm (411 HU). Cortical defect of the left midpole with dystrophic calcification measuring 9 x 7 x 7 mm. Retroaortic left renal vein is present, a normal variant. Bladder: Normal Reproductive Organs: Hysterectomy. No adnexal mass. Bowel: Diverticulosis is mild. No diverticulitis. Small bowel is normal. Minimal sliding hiatus hernia. Appendix: Normal Lymph nodes: None appear enlarged. Vasculature: Normal Peritoneum / Retroperitoneum: No free air, free fluid or mass. Bones: Unremarkable
[2025-04-05] MEDS: 0.9% Normal Saline (1000mL) 1,000 ML 999 ML IV (11:58)
[2025-04-05 12:00] VITALS: BP 110/70; PULSE 80; RESP 16; O2SAT 99
[2025-04-05 12:06] LABS: Mucous, Urine 0 SEEN /hpf (<or=2+); Red Blood Cells-Urine 0 SEEN /hpf (0-5); Squamous Epithelial Cells - UA 0 SEEN /hpf (5-10)
[2025-04-05 12:14] LABS: Hematocrit 45.6 % (37-47); Hemoglobin 14.9 g/dL (12.0-15.0); Immature Granulocytes Count 0.100 X10^3/uL (0.0-0.0); Mean Corp Hgb Conc 32.7 g/dL (32-36); Mean Corpuscular Volume 96.6 fL (81-99); Mean Platelet Vol. 10.3 fl (6.2-12.0); NRBC Flagged by Analyzer 0 % (0-5); Platelet Count 303 K/mm3 (150-450); RBC Distribution Width CV 12.5 % (11.6-14.6); RBC Distribution Width SD 44.7 fl (35.1-43.9); Red Blood Count 4.72 M/mm3 (4.2-5.4); White Blood Count 17.9 K/mm3 (4.4-11.0)
[2025-04-05 12:15] LABS: Color, Urine Yellow (Yellow); Glucose, Dipstick Normal (Normal); Ketone-Dipstick Negative (Negative); Leukocyte Esterase-Dipstick 100 /ul (Negative); Nitrite-Dipstick Negative (Negative); Occult Blood-Urine 25 /ul (Negative); Protein-Dipstick 30 mg/dl (Negative); Specific Gravity, Urine 1.010 (1.002-1.030); Urine Bilirubin Dipstick Negative (Negative)
[2025-04-05 12:28] LABS: Internal QC Validated? YES +Cl - CLEAR BKGD
[2025-04-05 12:29] LABS: Pregnancy, Urine Negative Negative
--- NOTE | 2025-04-05 12:29 | ED.VIS.GI ---
HPI HPI - GI History of Present Illness Chief Complaint: Abd Pain Narrative Narrative: Patient is a 40-year-old female presenting to the emergency department for abdominal pain, nausea and vomiting that started last night around 2:30 AM. Patient has a history of section and hysterectomy. She has a history of daily marijuana use as well her last use was 2 days ago. She states that she developed abdominal pain and a Hula hoop pattern of her abdomen. She denies fever or chills. She denies any sick contacts that she knows of. She endorses nausea with multiple episodes of nonbloody, nonbilious emesis. Denies any diarrhea. Denies any vaginal bleeding or discharge. [facility] Medical History Nicotine use disorder Fibromyalgia Marijuana use Adjustment disorder Syncope Genital herpes Bipolar disorder [place] Home Medications ?Medication ?Instructions ?Recorded ?Last Taken ?Type cariprazine 3 mg capsule (Vraylar) 3 mg PO DAILY 01/24/25 04/04/25 History clonazepam 1 mg tablet 1 mg PO TID PRN PRN anxiety attack 01/24/25 04/05/25 History doxycycline monohydrate 50 mg 50 mg PO DAILY 01/24/25 04/04/25 History capsule gabapentin 600 mg tablet 600 mg PO BID 01/24/25 04/04/25 History lamotrigine 200 mg tablet 200 mg PO QHS 01/24/25 04/04/25 History lamotrigine 25 mg tablet 25 mg PO QHS 01/24/25 04/04/25 History spironolactone 50 mg tablet 50 mg PO DAILY 01/24/25 04/04/25 History topiramate 100 mg tablet 100 mg PO QHS 01/24/25 04/04/25 History valacyclovir 500 mg tablet 500 mg PO DAILY 01/24/25 04/04/25 History zolpidem 6.25 mg tablet,extended 6.25 mg PO QHS 04/05/25 04/04/25 History release,multiphase Allergy/AdvReac Type Severity Reaction Status Date / Time olanzapine (From Zyprexa) Allergy Intermediate Rash Verified 04/05/25 10:27 ziprasidone (From Geodon) AdvReac Intermediate unsteady Verified 04/05/25 10:27 gait Surgical History H/O section History of vulvectomy H/O: hysterectomy Social History Smoking Status: Current every day smoker tobacco type: cigarettes ROS ROS ED ROS Narrative See HPI EXAM Physical Exam Narrative Exam Narrative: Vital signs: Reviewed General: Alert and oriented x 3. No acute distress. Well-appearing, nontoxic HEENT: Head is normocephalic and atraumatic, sinuses nontender, pupils equal round and reactive. Nares are patent. Oropharynx and throat exams normal. Neck: Supple without lymphadenopathy nontender Cardiovascular: Regular rate and rhythm, no murmurs. No rubs or gallops. Normal S1 and S2 Respiratory: Clear to auscultation bilaterally. No wheezes, rales, rhonchi Abdominal: Soft and tender to palpation diffusely. Normal bowel sounds. No guarding or rebound. Nonsurgical abdomen. No CVA tenderness to palpation. Extremities: No tenderness. No bruising. Normal range of motion. Normal sensation. Skin: No rash or redness. Neurological: Cranial nerves II through XII are grossly intact. Normal strength and sensation. Normal cerebellar function The rest of the physical exam is unremarkable Const Vital Signs: 04/05/25 10:26 04/05/25 12:00 04/05/25 14:00 Temperature 97.5 F L Temperature Source Temporal Pulse Rate 122 H 80 90 Respiratory Rate 16 16 16 Blood Pressure 102/73 110/70 130/80 H Blood Pressure Mean 82 83 96 Pulse Ox 98 99 99 Oxygen Delivery Method Room Air 04/05/25 14:07 Temperature 98.2 F Temperature Source Pulse Rate 90 Respiratory Rate 16 Blood Pressure 130/80 H Blood Pressure Mean 96 Pulse Ox 99 Oxygen Delivery Method MDM MDM MDM Narrative Medical decision making narrative: Patient is a 40-year-old female presenting to the emergency department for abdominal pain, nausea and vomiting. Patient was seen and examined. Patient is tachycardic on arrival at 122, BP stable at 102/73. Patient is afebrile saturating 98% on room air. Respirations of 16. Differential includes but is not limited to: Cannabis hyperemesis, gastroenteritis, pancreatitis, cholecystitis, UTI, colitis, diverticulitis Initially given Haldol for attempted symptomatic control, patient had no improvement in symptoms. Fluid bolus started. Given toradol and zofran. CBC with a significant leukocytosis of 17.9 and a normal hemoglobin. BMP with mild anion gap of 16 and bicarb of 18.6. BUN within normal limits, creatinine is elevated at 1.66. Lipase within normal limits. Urinalysis with evidence of possible urinary tract infection with 1+ bacteria, WBCs and leukocyte esterase. CT shows left hydronephrosis and hydroureter related to an obstructing stone 8.3 x 4.6 x 4.6 mm at the left UPJ. We do not have urology projection engineer at this facility at this time. Discussed findings with the patient and need for transfer to facility with urology given the JIM, stone and UTI. She is agreeable. Discussed with Dr. Alonzo Carbajal urology. He will likely be taking patient for stent today given her infected urine. Again her vitals are stable at this time. He recommended medical admission, I spoke with Dr. Bolden who will be admitting the patient for further management. Will be transferred. Clinical impression: Nephrolithiasis UTI Nausea and vomiting History & Record Review Discussion w/independent historian: Family Lab Data Attestation: I reviewed the patient's lab results. Labs: Laboratory Results - last 24 hr 04/05/25 04/05/25 10:40 11:57 WBC 17.9 H RBC 4.72 Hgb 14.9 Hct 45.6 MCV 96.6 MCH 31.6 MCHC 32.7 RDW Std Deviation 44.7 H RDW Coeff of [place] 12.5 Plt Count 303 MPV 10.3 Immature Gran % (Auto) 0.600 Neut % (Auto) 93.1 H Lymph % (Auto) 3.5 L [place] % (Auto) 2.6 Eos % (Auto) 0.1 Baso % (Auto) 0.1 Absolute Neuts (auto) 16.7 H Absolute Lymphs (auto) 0.62 L Nucleated RBC % 0 Sodium 136 Potassium 3.7 Chloride 102 Carbon Dioxide 18.6 L Anion Gap 16 H BUN 16 Creatinine 1.66 H Estim Creat Clear Calc 44.65 L Est GFR (MDRD) Non-Af 40 L BUN/Creatinine Ratio 9.4 L Glucose 146 H Calcium 9.4 Total Bilirubin 0.74 AST 19 ALT 14 Alkaline Phosphatase 105 H Total Protein 7.2 Albumin 4.1 Globulin 3.1 Albumin/Globulin Ratio 1.3 Lipase 18 Urine Color Yellow Urine Clarity Clear Urine pH 6.0 Ur Specific [place] 1.010 Urine Protein 30 H Urine Glucose (UA) Normal Urine Ketones Negative Urine Occult Blood 25 H Urine Nitrite Negative Urine Bilirubin Negative Urine Urobilinogen Normal Ur Leukocyte Esterase 100 H Urine RBC 0 SEEN Urine WBC 10-25 SEEN Ur Squamous Epith Cells 0 SEEN Urine Bacteria 1+ Urine Mucus 0 SEEN Urine Test Negative Radiography Diagnostic Testing: Clinical Impression(s) from Imaging Studies Abdomen/Pelvis CT 04/05/25 11:45 IMPRESSION: Left hydronephrosis and hydroureter related to an obstructing stone at the left UPJ. Reading Location: [id number] Discharge Plan Triage Chief Complaint: Abd Pain ED Provider: Bonnie Wilkinson Dx/Rx/DC Orders Prescriptions: No Action gabapentin 600 mg tablet 600 mg PO BID lamotrigine 200 mg tablet 200 mg PO QHS clonazepam 1 mg tablet 1 mg PO TID PRN PRN (Reason: anxiety attack) valacyclovir 500 mg tablet 500 mg PO DAILY lamotrigine 25 mg tablet 25 mg PO QHS doxycycline monohydrate 50 mg capsule 50 mg PO DAILY topiramate 100 mg tablet 100 mg PO QHS spironolactone 50 mg tablet 50 mg PO DAILY Vraylar 3 mg capsule 3 mg PO DAILY zolpidem 6.25 mg tablet,ext release multiphase 6.25 mg PO QHS Primary Care Provider: Kylah Marcelino NP Referrals: Kylah Marcelino NP, CLIENT DIRECTOR-C [Primary Care Provider, Medical] Print Language: Congolese Disposition Disposition: Acute Care Hospital Discharge Location: [facility] Discharge Date/Time: 04/05/25 14:40
[2025-04-05 12:31] LABS: AST(SGOT) 19 U/L (<=31); Alanine Aminotransfer ALT/SGPT 14 U/L (<=34); Albumin, Serum 4.1 g/dL (3.5-5.0); Alkaline Phosphatase 105 U/L (35-104); Anion Gap 16 (5-15); BUN 16 mg/dL (4-19); BUN/Creat Ratio 9.4 RATIO (10-20); Calcium,Total 9.4 mg/dL (7.6-11.0); Carbon Dioxide 18.6 mmol/L (21.0-32.0); Chloride 102 mmol/L (98-108); Estimated Creatinine Clearance 44.65 ml/min (50-250); Globulin 3.1 g/dL (2.2-4.2); Glucose 146 mg/dL (70-99); Lipase 18 U/L (13-75); Potassium 3.7 mmol/L (3.3-5.1)
[2025-04-05 14:00] VITALS: BP 130/80; PULSE 90; RESP 16; O2SAT 99
[2025-04-05 14:07] VITALS: BP 130/80; PULSE 90; RESP 16; TEMP 36.8; O2SAT 99
== END 2025-04-05 14:40 | disposition short-term general hospital (02) ==
PROVIDERS: Emergency Provider Student in an Organized Health Care Education/Training Program; PCP Nurse Practitioner Adult Health; Visit Provider Student in an Organized Health Care Education/Training Program
DX: N13.6 Pyonephrosis (principal); F17.210 Nicotine dependence, cigarettes, uncomplicated
CPT/HCPCS: 74177; 80053; 81001; 81025; 83690; 85025; 96361; 96365; 96375; 99283; Q9967; A4216; J2405